=== PATIENT | male | born 2000 | race Caucasian/White ===

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

== ENCOUNTER 2018-07-07 13:53 | Emergency (ER) | payer OTHER ==
[2018-07-07 14:36] VITALS: BP 140/75
--- NOTE | 2018-07-07 14:43 | UC ---
Laceration HPI - HPI Summary HPI Summary: 18 yo male works at [employer]. Was carrying a donated glass when it broke lacerating both hands His tetanus is up to date He is right handed - History Of Current Complaint Chief Complaint: UCLaceration Stated Complaint: BILAT HAND LACS (WC) Time Seen by Provider: 07/07/18 14:32 Hx Obtained From: Patient Laceration Location: Hand - R/L Mechanism Of Injury: Sharp Trauma Onset/Duration: Sudden Onset, Lasting Minutes Severity: Mild Pain Intensity: 2 Pain Scale Used: 0-10 Numeric Aggravating Factors: Nothing Hands: 1 - L thenar eminence-superficial laceration. 3 cm long , <1mm wide, 1 mm deep 2 - 1 cm lac, 1 mm wide, 1mm deep, no gapping with bending at pip - Allergies/Home Medications Allergies/Adverse Reactions: Allergies Allergy/AdvReac Type Severity Reaction Status Date / Time amoxicillin Allergy Hives Verified 07/07/18 14:32 Home Medications: Home Medications NK [No Home Medications Reported] 07/07/18 [History Confirmed 07/07/18] PMH/Surg Hx/FS Hx/Imm Hx Previously Healthy: Yes Other History Of: Negative For: HIV, Hepatitis B, Hepatitis C, Anticoagulant Therapy - Surgical History Surgical History: Yes Surgery Procedure, Year, and Place: wisdom teeth 12/22 - Family History Known Family History: Positive: Other - hx senile dementia Negative: Cardiac Disease, Hypertension, Diabetes - Social History Alcohol Use: Rare Substance Use Type: None Smoking Status (MU): Heavy Every Day Tobacco Smoker - Immunization History Vaccination Up to Date: Yes Review of Systems Constitutional: Negative Skin: Negative Eyes: Negative ENT: Negative Respiratory: Negative Cardiovascular: Negative Gastrointestinal: Negative Genitourinary: Negative Motor: Negative Neurovascular: Negative Musculoskeletal: Negative Neurological: Negative Psychological: Negative All Other Systems Reviewed And Are Negative: Yes Physical Exam Triage Information Reviewed: Yes Appearance: Well-Appearing, No Pain Distress, Well-Nourished Vital Signs: Initial Vital Signs Temp 99.3 F 07/07/18 14:28 Pulse 77 07/07/18 14:28 Resp 16 07/07/18 14:28 BP 140/75 07/07/18 14:28 Pulse Ox 100 07/07/18 14:28 Vital Signs Reviewed: Yes Eyes: Positive: Conjunctiva Clear ENT: Positive: Hearing grossly normal. Negative: Nasal congestion, Nasal drainage, Trismus, Muffled voice, Hoarse voice Neck: Positive: Supple, Nontender, No Lymphadenopathy Respiratory: Positive: Lungs clear, Normal breath sounds, No respiratory distress, No accessory muscle use Cardiovascular: Positive: RRR, No Murmur Musculoskeletal: Positive: ROM Intact, No Edema Neurological: Positive: Alert Psychological Exam: Normal Skin Exam: Other - see image Laceration Repair - Laceration Repair 1 Procedure Summary: Left thenar eminence Description: Linear Laceration Size After Repair: Length (cm) - 3, Width (mm) - 1, Depth (mm) - 1 Modified For Repair: No Cleansing Completed Via Routine Prep: Yes Irrigation With Pressure Irrigation Device: Yes Closure Material: Skin Adhesive 2 Procedure Summary: right index finger PIP Description: Linear Laceration Size After Repair: Length (cm) - 1, Width (mm) - 1, Depth (mm) - 1 Modified For Repair: No Cleansing Completed Via Routine Prep: Yes Irrigation With Pressure Irrigation Device: Yes Closure Material: Skin Adhesive Laceration Course/Dx - Differential Dx - Laceration/Wound Provider Diagnoses: superficial laceration left hand (thenar eminence). superficial laceration of right index finger. elevated BP without diagnosis of hypertension Discharge - Sign-Out/Discharge Documenting (check all that apply): Patient Departure All imaging exams completed and their final reports reviewed: No Studies - Discharge Plan Condition: Stable Disposition: HOME Patient Education Materials: Skin Adhesive Care (ED) Referrals: Abdi Chan MD [Primary Care Provider] - 2 Weeks (recheck in 2-12 weeks for BP recheck you are in the prehypertensive range (140/75)) Additional Instructions: recheck for any concerns of infection If lacerations open up you may use a bandaid Once your finger laceration completely dries I would use a bandaid for the next day or two - Billing Disposition and Condition Condition: STABLE Disposition: Home
== END 2018-07-07 15:18 | disposition home or self-care (01) ==
LOC: UCCORT 13:53
DX: S61.412A Laceration without foreign body of left hand, initial encounter (principal); S61.411A Laceration without foreign body of right hand, initial encounter; W25.XXXA Contact with sharp glass, initial encounter; Y92.89 Other specified places as the place of occurrence of the external cause; R03.0 Elevated blood-pressure reading, without diagnosis of hypertension; F17.200 Nicotine dependence, unspecified, uncomplicated
CPT/HCPCS: 99211; G0463